=== PATIENT | female | born 1965 | race Caucasian/White ===

== ENCOUNTER 2018-02-04 22:57 | Inpatient (IN) ==
[2018-02-04] MEDS ORDERED: Haloperidol Inj 5 MG/ML Ampul IV.PUSH ONE (23:29)
[2018-02-04] MEDS ORDERED: Tobramycin 0.3% Opth Drops 5 ML Bottle EACH EYE ONE (23:29)
--- NOTE | 2018-02-05 00:06 | ED ---
HPI General Chief Complaint: Psychiatric Symptoms Stated Complaint: Psych Eval - [facility] Time Seen by Provider: 02/05/18 14:00 Source: patient and police Mode of arrival: ambulatory Limitations: altered mental status History of Present Illness HPI Narrative: 53-year-old white female presents emergency department under March act by PD. Patient's roommates called police reporting that the patient has been off her medicines for the last couple of weeks. She was banging on the windows, banging on the mohan. They were concerned regarding the patient's well-being. She was erratic and psychotic. The patient here is psychotic. She is talking about [place] in [place]. She is not making any sense. Unable to obtain a history from the patient. Reviewed the patient's past medical history reveals: Past medical history: Bipolar disorder, cervical dysplasia Surgical history: Tummy tuck, breast augmentation Related Data Home Medications Medication Instructions Recorded Confirmed Unable to Obtain Home Meds 02/05/18 02/05/18 Allergies Allergy/AdvReac Type Severity Reaction Status Date / Time iodine Allergy Severe Swelling Verified 02/05/18 03:30 potassium iodide Allergy Severe Swelling Verified 02/05/18 03:30 povidone-iodine Allergy Severe Swelling Verified 02/05/18 03:30 prednisone Allergy Severe Nausea/Vomi Verified 02/05/18 03:30 ting sodium iodide Allergy Severe Swelling Verified 02/05/18 03:30 sodium iodide Allergy Severe Swelling Verified 02/05/18 03:30 Review of Systems ROS Unobtainable ROS Unobtainable: unobtainable due to mental status PMFSH Social History Social History Substance History: No History of Abuse Second Hand Smoke Exposure: Yes Smoking Status: Heavy tobacco smoker Tobacco Type: Cigarettes How Often Do You Have a Drink Containing Alcohol: 2 to 3 times a week Recent Travel in [place] within the Last 8 Weeks: No Recent Out of Country Travel within the Last 8 Weeks: No Exam Narrative Exam Narrative: GENERAL: Well-nourished, well-developed patient. Patient is somewhat agitated. Unwilling to answer questions. SKIN: Warm and dry. HEAD: Normocephalic and atraumatic. EYES: No scleral icterus. No injection or drainage in the right eye. Patient's left eye is injected. She has a large amount of mucoid drainage. She has permanent eyeliner on. ENT: No nasal drainage noted. Mucous membranes very dry and her lips are cracked. Airway patent. NECK: Supple, trachea midline. Moves head freely without obvious discomfort. CARDIOVASCULAR: Regular tachycardic rate and rhythm without murmurs, gallops, or rubs. RESPIRATORY: Breath sounds equal bilaterally. No accessory muscle use. GASTROINTESTINAL: Abdomen soft, non-tender, nondistended. EXTREMITIES: No cyanosis or edema. BACK: Nontender without obvious deformity. No CVA tenderness. NEURO: Patient is alert and oriented. no sensorimotor deficits. Nonfocal. Normal speech. PSYCH: Patient is acutely psychotic and rambling. She talks about [place] and [place]. Course Initial Documented Vital Signs Temperature 98.5 F 02/04/18 23:15 Pulse Rate 96 H 02/04/18 23:15 Respiratory Rate 12 02/04/18 23:15 Blood Pressure 138/66 02/04/18 23:15 Pulse Oximetry 95 02/04/18 23:15 Last Documented Vital Signs Temperature 97.7 F 02/07/18 05:39 Pulse Rate 71 02/07/18 05:39 Respiratory Rate 17 02/07/18 05:39 Blood Pressure 117/70 02/07/18 05:39 Pulse Oximetry 97 02/07/18 05:39 Medical Decision Making MDM Narrative Medical decision making narrative: IV access is obtained. Routine laboratory tests sent for medical clearance. Patient will be given 2 L of normal saline IV , Haldol 2 mg IV, Ativan 1 mg IV. Patient's left eye will be cleansed by the nursing staff. Tobramycin ophthalmic ointment will be instilled. Medical Screen Exam Complete: Yes Emergency Medical Condition: Yes Differential Diagnosis Differential Diagnosis: MDM: High Differential diagnoses: Schizophrenia, schizoaffective disorder, bipolar, anxiety, depression, adjustment reaction, mood disorder NOS, ODD, depressive disorder NOS, dementia, dementia with agitation, psychosis NOS, substance induced mood disorder, infection,electrolyte abnormality, malingering. Mental health screening discussed with the patient. Psychiatric screen ordered. Lab Data Result diagrams: 02/04/18 00:20 02/04/18 00:20 Lab Results 02/04/18 02/04/18 02/05/18 Range/Units 00:20 00:20 03:43 WBC 9.5 (4.0-11.0) th/mm3 RBC 4.32 (4.00-5.30) mil/mm3 Hgb 12.7 (11.6-15.3) gm/dL Hct 36.1 (35.0-46.0) % MCV 83.7 (80.0-100.0) fL MCH 29.3 (27.0-34.0) pg MCHC 35.0 (32.0-36.0) % RDW 13.1 (11.6-17.2) % Plt Count 236 (150-450) th/mm3 MPV 9.4 (7.0-11.0) fL Neut % (Auto) 71.3 H (16.0-70.0) % Lymph % (Auto) 21.2 (9.0-44.0) % [place] % (Auto) 6.4 (0.0-8.0) % Eos % (Auto) 0.4 (0.0-4.0) % Baso % (Auto) 0.7 (0.0-2.0) % Neut # (Auto) 6.8 (1.8-7.7) th/mm3 Lymph # (Auto) 2.0 (1.0-4.8) th/mm3 [place] # (Auto) 0.6 (0.0-0.9) th/mm3 Eos # (Auto) 0.0 (0.0-0.4) th/mm3 Baso # (Auto) 0.1 (0.0-0.2) th/mm3 WBC Differential . Differential Comment Auto diff final Sodium 149 H (136-145) meq/L Potassium 3.6 (3.5-5.1) meq/L Chloride 114 H (98-107) meq/L Carbon Dioxide 26.2 (21.0-32.0) meq/L Anion Gap 9 (5-15) meq/L BUN 15 (7-18) mg/dL Creatinine 0.78 (0.50-1.00) mg/dL Estimated GFR 77 L (>89) mL/min Random Glucose 107 H (74-106) mg/dL Calcium 8.9 (8.5-10.1) mg/dL Magnesium 2.0 (1.5-2.5) mg/dL Total Bilirubin 0.5 (0.2-1.0) mg/dL AST 17 (15-37) U/L ALT 17 (10-53) U/L Alkaline Phosphatase 56 (45-117) U/L Total Protein 7.0 (6.4-8.2) g/dL Albumin 3.9 (3.4-5.0) g/dL TSH 0.592 (0.358-3.740) uIU/mL Urine Color (Yellw/Straw) Urine Clarity (Clear) Urine pH (5.0-8.5) Ur Specific [place] (1.002-1.035) Urine Protein (Neg-Trace) mg/dL Urine Glucose (UA) (Negative) mg/dL Urine Ketones (Negative) mg/dL Urine Occult Blood (Negative) Urine Nitrate (Negative) Urine Bilirubin (Negative) Urine Urobilinogen (Less than 2) mg/dL Ur Leukocyte Esterase (Negative) Urine RBC (0-3) /hpf Urine WBC (0-5) /hpf Ur Squamous Epith Cells (0-5) /hpf Calcium Oxalate Crystal (None) /hpf Urine Bacteria (None) /hpf Urine Mucus (Occasional) /lpf Micro UA Comment Ur Microscopic Review Urine Culture Comments Urine Opiates Screen Neg (Neg) Ur Barbiturates Screen Neg (Neg) Ur Amphetamines Screen Neg (Neg) U Benzodiazepines Scrn Neg (Neg) Urine Cocaine Screen Neg (Neg) U Cannabinoids Screen Pos H (Neg) Serum Alcohol Less than 3 (0-5) mg/dL 02/05/18 Range/Units 03:43 WBC (4.0-11.0) th/mm3 RBC (4.00-5.30) mil/mm3 Hgb (11.6-15.3) gm/dL Hct (35.0-46.0) % MCV (80.0-100.0) fL MCH (27.0-34.0) pg MCHC (32.0-36.0) % RDW (11.6-17.2) % Plt Count (150-450) th/mm3 MPV (7.0-11.0) fL Neut % (Auto) (16.0-70.0) % Lymph % (Auto) (9.0-44.0) % [place] % (Auto) (0.0-8.0) % Eos % (Auto) (0.0-4.0) % Baso % (Auto) (0.0-2.0) % Neut # (Auto) (1.8-7.7) th/mm3 Lymph # (Auto) (1.0-4.8) th/mm3 [place] # (Auto) (0.0-0.9) th/mm3 Eos # (Auto) (0.0-0.4) th/mm3 Baso # (Auto) (0.0-0.2) th/mm3 WBC Differential Differential Comment Sodium (136-145) meq/L Potassium (3.5-5.1) meq/L Chloride (98-107) meq/L Carbon Dioxide (21.0-32.0) meq/L Anion Gap (5-15) meq/L BUN (7-18) mg/dL Creatinine (0.50-1.00) mg/dL Estimated GFR (>89) mL/min Random Glucose (74-106) mg/dL Calcium (8.5-10.1) mg/dL Magnesium (1.5-2.5) mg/dL Total Bilirubin (0.2-1.0) mg/dL AST (15-37) U/L ALT (10-53) U/L Alkaline Phosphatase (45-117) U/L Total Protein (6.4-8.2) g/dL Albumin (3.4-5.0) g/dL TSH (0.358-3.740) uIU/mL Urine Color [place] (Yellw/Straw) Urine Clarity Clear (Clear) Urine pH 5.0 (5.0-8.5) Ur Specific [place] 1.029 (1.002-1.035) Urine Protein 100 H (Neg-Trace) mg/dL Urine Glucose (UA) Negative (Negative) mg/dL Urine Ketones 80 or greater H (Negative) mg/dL Urine Occult Blood Negative (Negative) Urine Nitrate Negative (Negative) Urine Bilirubin Negative (Negative) Urine Urobilinogen 2.0 H (Less than 2) mg/dL Ur Leukocyte Esterase Trace H (Negative) Urine RBC 1 (0-3) /hpf Urine WBC 5 (0-5) /hpf Ur Squamous Epith Cells 1 (0-5) /hpf Calcium Oxalate Crystal Rare H (None) /hpf Urine Bacteria Rare H (None) /hpf Urine Mucus Few H (Occasional) /lpf Micro UA Comment Culture not ind Ur Microscopic Review Not Reportable Urine Culture Comments Culture not ind Urine Opiates Screen (Neg) Ur Barbiturates Screen (Neg) Ur Amphetamines Screen (Neg) U Benzodiazepines Scrn (Neg) Urine Cocaine Screen (Neg) U Cannabinoids Screen (Neg) Serum Alcohol (0-5) mg/dL Discharge Plan Discharge Disposition Patient Disposition: 01 Discharge Home Discharge Condition Condition: Stable Physicians Team ED Provider: Glenna Cerda ED Midlevel Provider: Mike Brown Primary Care Provider: UNKNOWN, Attending Provider: August Lim Other Providers: Blanco Perez ED Status: Left Department Discharge Information Discharge Date/Time: 02/05/18 16:16
[2018-02-05] MEDS: Sod Chloride 0.9% Inj 1,000 ML IV.SIG SCH ×2 (00:09→00:22)
[2018-02-05 01:06] LABS: Alanine Aminotransferase 17 U/L (10-53); Albumin 3.9 g/dL (3.4-5.0); Anion Gap 9 meq/L (5-15); Aspartate Aminotransferase 17 U/L (15-37); Blood Urea Nitrogen 15 mg/dL (7-18); Calcium 8.9 mg/dL (8.5-10.1); Carbon Dioxide 26.2 meq/L (21.0-32.0); Chloride 114 meq/L (98-107); Glomerular Filtration Rate 77 mL/min (>89); Glucose,Random 107 mg/dL (74-106); Potassium 3.6 meq/L (3.5-5.1); Sodium 149 meq/L (136-145)
[2018-02-05 01:08] LABS: Baso # (Auto) 0.1 th/mm3 (0.0-0.2); Baso % (Auto) 0.7 % (0.0-2.0); Eos % (Auto) 0.4 % (0.0-4.0); Hematocrit 36.1 % (35.0-46.0); Hemoglobin 12.7 gm/dL (11.6-15.3); Lymph % (Auto) 21.2 % (9.0-44.0); Mean Corpuscular Hemoglobin 29.3 pg (27.0-34.0); Mean Corpuscular Volume 83.7 fL (80.0-100.0); Mean Platelet Volume 9.4 fL (7.0-11.0); Mono # (Auto) 0.6 th/mm3 (0.0-0.9); Mono % (Auto) 6.4 % (0.0-8.0); Neut # (Auto) 6.8 th/mm3 (1.8-7.7); Neut % (Auto) 71.3 % (16.0-70.0); Platelet Count 236 th/mm3 (150-450); Red Blood Count 4.32 mil/mm3 (4.00-5.30); Red Cell Distribution Width 13.1 % (11.6-17.2); White Blood Count 9.5 th/mm3 (4.0-11.0)
[2018-02-05 01:17] LABS: Alkaline Phosphatase 56 U/L (45-117); Thyroid Stimulating Hormone 0.592 uIU/mL (0.358-3.740)
[2018-02-05 04:08] LABS: Amphetamine Screen,Urine Neg (Neg); Barbiturate Screen,Urine Neg (Neg); Cannabinoid Screen,Urine Pos (Neg); Cocaine Screen,Urine Neg (Neg); Opiate Screen,Urine Neg (Neg)
[2018-02-05 04:16] LABS: Bacteria,Urine Rare /hpf; Bilirubin,Urine Negative (Negative); Calcium Oxalate Crystals,Urine Rare /hpf; Clarity,Urine Clear (Clear); Color,Urine Amber (Yellw/Straw); Glucose,Urine (UA) Negative (Negative); Leukocyte Esterase,Urine Trace (Negative); Mucus,Urine Few /lpf (Occasional); Nitrite,Urine Negative (Negative); Specific Gravity,Urine 1.029 (1.002-1.035); Squamous Epithelial Cell,Urine 1 /hpf (0-5)
--- NOTE | 2018-02-05 14:20 | ED ---
HPI - Psych - General Source: patient, police Mode of arrival: ambulatory Limitations: other - History of Present Illness MD complaint: other Onset (ago): hour(s) Duration: constant History of same: Yes Relieving factors: none Context: not taking psychiatric medications Associated psychiatric symptoms: homicidal ideation, delusions Associated symptoms: other Treatments prior to arrival: placed on mental health hold (Unable to evaluate), chemical restraints If self harm: other (Negative) - General Chief Complaint: Psychiatric Symptoms Stated Complaint: Psych Eval - DBPD Time Seen by Provider: 02/05/18 14:00 - History of Present Illness HPI Narrative: History of Present Illness HPI Narrative: 53-year-old white female with history of schizoaffective disorder who presents to the emergency department under March act initiated by PD. Patient's roommates called police reporting that the patient has been off her medicines for the last couple of weeks, has not showered in 4 days and was smashing her hands against the mohan and windows of her room. The patient required ETO's while in the ED. She is talking about [place] and [place]. She is also talking about people performing surgery on her and trying to kill her. She becomes agitated quickly whenever staff attempt to engage her. She is quite reactive and hostile towards me with limited impulse control and poor insight. Unable to obtain a history from the patient. EMR reviewed. The patient was admitted to inpatient psychiatry unit back in 2014 under March act as well for homicidal threats against 3 unknown individuals. (Beulah Dickinson) - Related Data Home Medications Medication Instructions Recorded Confirmed Unable to Obtain Home Meds 02/05/18 02/05/18 Allergies Allergy/AdvReac Type Severity Reaction Status Date / Time iodine Allergy Severe Swelling Verified 02/05/18 03:30 potassium iodide Allergy Severe Swelling Verified 02/05/18 03:30 povidone-iodine Allergy Severe Swelling Verified 02/05/18 03:30 prednisone Allergy Severe Nausea/Vomi Verified 02/05/18 03:30 ting sodium iodide Allergy Severe Swelling Verified 02/05/18 03:30 sodium iodide Allergy Severe Swelling Verified 02/05/18 03:30 PMFSH - History History Provided By: Patient - Social History I have reviewed the patient's Social History: No - Tobacco History Second Hand Smoke Exposure: Yes Tobacco Use In Past 30 Days: Yes Smoking Status: Heavy tobacco smoker Tobacco Type: Cigarettes - Alcohol History How Often Do You Have a Drink Containing Alcohol: 2 to 3 times a week - Substance Use History Substance History: No History of Abuse - Travel History Recent Travel in the [place] Within the Last 8 Weeks: No Recent Travel Out of the Country Within the Last 8 Weeks: No - Immunization History Tetanus Immunization: <5 Years Psychiatric History - Psychiatric History Psychiatric Treatment History: History of Psychiatric Treatment History of Inpatient Treatment: Yes - Psychiatric History 1 previous admission to our inpatient psychiatric unit in 2014 (Beulah Dickinson) - Family Psychiatric History Unable to (Beulah Dickinson) Physical Exam - General Limitations: altered mental status Mental Status Examination Consciousness: Alert Orientation: Person Motor Activity: Normal gait Speech: Other (Loud) Language: Adequate Fund of Knowledge: Adequate Attention and Concentration: Inadequate Memory: Unremarkable Mood: Angry (Not formally tested), Other (Easily agitated and threatening) Affect: Irritable Thought Process & Associations: Disorganized Thought Content: Delusional Hallucination Type: None Delusion Type: Paranoid, Other Suicidal Ideation: No Suicidal Plan: No Suicidal Intention: No Homicidal Ideation: No Homicidal Plan: No Homicidal Intention: No Insight: Poor Judgment: Poor Initial Documented Vital Signs Temperature 98.5 F 02/04/18 23:15 Pulse Rate 96 H 02/04/18 23:15 Respiratory Rate 12 02/04/18 23:15 Blood Pressure 138/66 02/04/18 23:15 Pulse Oximetry 95 02/04/18 23:15 Last Documented Vital Signs Temperature 98.5 F 02/04/18 23:15 Pulse Rate 79 02/05/18 12:59 Respiratory Rate 18 02/05/18 12:59 Blood Pressure 118/60 02/05/18 12:59 Pulse Oximetry 100 02/05/18 12:59 MDM - Psych - Diagnosis (1) Schizoaffective disorder Status: Acute - Lab Data Result diagrams: 02/04/18 00:20 02/04/18 00:20 - [facility] Narrative Medical decision making narrative: The time of this evaluation the patient meets criteria to remain under the March act. She presents as quite psychotic easily agitated and threatening. She believes that people are trying to harm her and perform surgery on her. Patient will be admitted to inpatient psychiatric unit for safety stabilization and to restart her medications. (Beulah Dickinson) - Lab Data Lab Results 02/04/18 02/04/18 02/05/18 Range/Units 00:20 00:20 03:43 WBC 9.5 (4.0-11.0) th/mm3 RBC 4.32 (4.00-5.30) mil/mm3 Hgb 12.7 (11.6-15.3) gm/dL Hct 36.1 (35.0-46.0) % MCV 83.7 (80.0-100.0) fL MCH 29.3 (27.0-34.0) pg MCHC 35.0 (32.0-36.0) % RDW 13.1 (11.6-17.2) % Plt Count 236 (150-450) th/mm3 MPV 9.4 (7.0-11.0) fL Neut % (Auto) 71.3 H (16.0-70.0) % Lymph % (Auto) 21.2 (9.0-44.0) % [place] % (Auto) 6.4 (0.0-8.0) % Eos % (Auto) 0.4 (0.0-4.0) % Baso % (Auto) 0.7 (0.0-2.0) % Neut # (Auto) 6.8 (1.8-7.7) th/mm3 Lymph # (Auto) 2.0 (1.0-4.8) th/mm3 [place] # (Auto) 0.6 (0.0-0.9) th/mm3 Eos # (Auto) 0.0 (0.0-0.4) th/mm3 Baso # (Auto) 0.1 (0.0-0.2) th/mm3 WBC Differential . Differential Comment Auto diff final Sodium 149 H (136-145) meq/L Potassium 3.6 (3.5-5.1) meq/L Chloride 114 H (98-107) meq/L Carbon Dioxide 26.2 (21.0-32.0) meq/L Anion Gap 9 (5-15) meq/L BUN 15 (7-18) mg/dL Creatinine 0.78 (0.50-1.00) mg/dL Estimated GFR 77 L (>89) mL/min Random Glucose 107 H (74-106) mg/dL Calcium 8.9 (8.5-10.1) mg/dL Magnesium 2.0 (1.5-2.5) mg/dL Total Bilirubin 0.5 (0.2-1.0) mg/dL AST 17 (15-37) U/L ALT 17 (10-53) U/L Alkaline Phosphatase 56 (45-117) U/L Total Protein 7.0 (6.4-8.2) g/dL Albumin 3.9 (3.4-5.0) g/dL TSH 0.592 (0.358-3.740) uIU/mL Urine Color (Yellw/Straw) Urine Clarity (Clear) Urine pH (5.0-8.5) Ur Specific [place] (1.002-1.035) Urine Protein (Neg-Trace) mg/dL Urine Glucose (UA) (Negative) mg/dL Urine Ketones (Negative) mg/dL Urine Occult Blood (Negative) Urine Nitrate (Negative) Urine Bilirubin (Negative) Urine Urobilinogen (Less than 2) mg/dL Ur Leukocyte Esterase (Negative) Urine RBC (0-3) /hpf Urine WBC (0-5) /hpf Ur Squamous Epith Cells (0-5) /hpf Calcium Oxalate Crystal (None) /hpf Urine Bacteria (None) /hpf Urine Mucus (Occasional) /lpf Micro UA Comment Ur Microscopic Review Urine Culture Comments Urine Opiates Screen Neg (Neg) Ur Barbiturates Screen Neg (Neg) Ur Amphetamines Screen Neg (Neg) U Benzodiazepines Scrn Neg (Neg) Urine Cocaine Screen Neg (Neg) U Cannabinoids Screen Pos H (Neg) Serum Alcohol Less than 3 (0-5) mg/dL 02/05/18 Range/Units 03:43 WBC (4.0-11.0) th/mm3 RBC (4.00-5.30) mil/mm3 Hgb (11.6-15.3) gm/dL Hct (35.0-46.0) % MCV (80.0-100.0) fL MCH (27.0-34.0) pg MCHC (32.0-36.0) % RDW (11.6-17.2) % Plt Count (150-450) th/mm3 MPV (7.0-11.0) fL Neut % (Auto) (16.0-70.0) % Lymph % (Auto) (9.0-44.0) % [place] % (Auto) (0.0-8.0) % Eos % (Auto) (0.0-4.0) % Baso % (Auto) (0.0-2.0) % Neut # (Auto) (1.8-7.7) th/mm3 Lymph # (Auto) (1.0-4.8) th/mm3 [place] # (Auto) (0.0-0.9) th/mm3 Eos # (Auto) (0.0-0.4) th/mm3 Baso # (Auto) (0.0-0.2) th/mm3 WBC Differential Differential Comment Sodium (136-145) meq/L Potassium (3.5-5.1) meq/L Chloride (98-107) meq/L Carbon Dioxide (21.0-32.0) meq/L Anion Gap (5-15) meq/L BUN (7-18) mg/dL Creatinine (0.50-1.00) mg/dL Estimated GFR (>89) mL/min Random Glucose (74-106) mg/dL Calcium (8.5-10.1) mg/dL Magnesium (1.5-2.5) mg/dL Total Bilirubin (0.2-1.0) mg/dL AST (15-37) U/L ALT (10-53) U/L Alkaline Phosphatase (45-117) U/L Total Protein (6.4-8.2) g/dL Albumin (3.4-5.0) g/dL TSH (0.358-3.740) uIU/mL Urine Color [place] (Yellw/Straw) Urine Clarity Clear (Clear) Urine pH 5.0 (5.0-8.5) Ur Specific [place] 1.029 (1.002-1.035) Urine Protein 100 H (Neg-Trace) mg/dL Urine Glucose (UA) Negative (Negative) mg/dL Urine Ketones 80 or greater H (Negative) mg/dL Urine Occult Blood Negative (Negative) Urine Nitrate Negative (Negative) Urine Bilirubin Negative (Negative) Urine Urobilinogen 2.0 H (Less than 2) mg/dL Ur Leukocyte Esterase Trace H (Negative) Urine RBC 1 (0-3) /hpf Urine WBC 5 (0-5) /hpf Ur Squamous Epith Cells 1 (0-5) /hpf Calcium Oxalate Crystal Rare H (None) /hpf Urine Bacteria Rare H (None) /hpf Urine Mucus Few H (Occasional) /lpf Micro UA Comment Culture not ind Ur Microscopic Review Not Reportable Urine Culture Comments Culture not ind Urine Opiates Screen (Neg) Ur Barbiturates Screen (Neg) Ur Amphetamines Screen (Neg) U Benzodiazepines Scrn (Neg) Urine Cocaine Screen (Neg) U Cannabinoids Screen (Neg) Serum Alcohol (0-5) mg/dL
[2018-02-05] MEDS ORDERED: Aluminum/Magnesium/Simethacone Susp 30 ML UDC PO PRN (15:34)
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
[2018-02-06] MEDS ORDERED: Benztropine Inj 2 MG/2 ML Ampul IM PRN (12:50)
[2018-02-06] MEDS ORDERED: Acetaminophen 325 MG Tablet PO PRN (12:50)
[2018-02-06] MEDS ORDERED: fluPHENAZine Inj 25 MG/10 ML Vial IM PRN ×2 (14:00)
--- NOTE | 2018-02-07 09:54 | P.CONPSY ---
Provisional Diagnosis Admission Date: February 05, 2018 15:36 [employer] [place].: 1. Schizoaffective disorder, bipolar type, acute exacerbation 2. Cannabis use, rule out use disorder [employer] II.: Deferred History of Present Illness Service: Psychiatry Consult date: 02/07/18 Requesting Physician: August Lim Reason for Consult: Second opinion petition supporting [employer] Primary Care Provider: UNKNOWN History of Present Illness: Patient is a 53-year-old white female admitted to Dr. August Lim service under the March act's H&P reviewed and agreed with. Dr. Lim assigned first opinion petition supporting March act. Patient seen by me in day room with nurse Shanita. Patient with rapid pressured speech quite paranoid delusional showing no insight somewhat threatening also with her behaviors. At this time I feel patient does not meet March criteria thus I will cosign second opinion petition supporting [employer] act Review of Systems All other systems reviewed negative except as stated in HPI PMFSH - History History Provided By: Patient - Medical / Surgical Hx Neg / Unobtainable Medical Problems Denied: Unable to Obtain (Due to patient's psychosis) Surgical History: Unable to Obtain (Due to patient's psychosis) - Tobacco History Second Hand Smoke Exposure: Yes Tobacco Use In Past 30 Days: Yes Smoking Status: Heavy tobacco smoker Tobacco Type: Cigarettes - Alcohol History How Often Do You Have a Drink Containing Alcohol: 2 to 3 times a week - Substance Use History Substance History: No History of Abuse - Travel History Recent Travel in the [place] Within the Last 8 Weeks: No Recent Travel Out of the Country Within the Last 8 Weeks: No - Immunization History Tetanus Immunization: <5 Years Medications and Allergies Active Medications: Active Medications Acetaminophen (Tylenol) 650 mg PO Q4H PRN PRN Reason: Pain 1-5 or Temp >101F Al Hydrox/Mg Hydrox/Simethicone (Mag-Al Plus Susp Liq) 30 ml PO Q6H PRN PRN Reason: DYSPEPSIA Al Hydroxide/Mg Hydroxide (Milk Of Magnesia Liq) 30 ml PO Q12H PRN PRN Reason: Mild Constipation Benztropine Mesylate (Cogentin) 1 mg PO Q12H PRN PRN Reason: EXTRA PYRAMIDAL SYMPTOMS Benztropine Mesylate (Cogentin Inj) 1 mg IM Q12H PRN PRN Reason: EXTRA PYRAMIDAL SYMPTOMS Diphenhydramine HCl (Benadryl) 50 mg PO HS PRN PRN Reason: INSOMNIA Fluphenazine HCl (Prolixin) 5 mg PO BID [facility] Last Admin: 02/07/18 08:19 Dose: 5 mg Fluphenazine HCl (Prolixin Inj) 5 mg IM BID PRN PRN Reason: REFUSES PO PROLIXIN Fluphenazine HCl (Prolixin Inj) 5 mg IM Q8H PRN PRN Reason: SEVERE AGITATION Lorazepam (Ativan Inj) 1 mg IM Q6H PRN PRN Reason: MODERATE TO SEVERE ANXIETY Lorazepam (Ativan) 1 mg PO Q6H PRN PRN Reason: MODERATE TO SEVERE ANXIETY Nicotine (Habitrol 21 Mg Patch.24 Hr) 1 patch T-DERMAL DAILY [facility] Last Admin: 02/07/18 08:18 Dose: 1 patch Valproate Sodium (Depakene Liq) 500 mg PO BID [facility] Last Admin: 02/07/18 08:18 Dose: Not Given Allergies Allergy/AdvReac Type Severity Reaction Status Date / Time iodine Allergy Severe Swelling Verified 02/05/18 03:30 potassium iodide Allergy Severe Swelling Verified 02/05/18 03:30 povidone-iodine Allergy Severe Swelling Verified 02/05/18 03:30 prednisone Allergy Severe Nausea/Vomi Verified 02/05/18 03:30 ting sodium iodide Allergy Severe Swelling Verified 02/05/18 03:30 sodium iodide Allergy Severe Swelling Verified 02/05/18 03:30 Home Medications Medication Instructions Recorded Confirmed Type Unable to Obtain Home Meds 02/05/18 02/05/18 History Exam Vital signs: Vital Signs 02/07/18 05:39 Temperature 97.7 F Pulse Rate 71 Respiratory Rate 17 Blood Pressure 117/70 Pulse Oximetry 97 Narrative: Patient pacing in the dayroom she is in no acute distress she is in no respiratory distress patient patient moving all 4 extremities without difficulty she is not complaining of any chest pain or abdominal pain Mental Status Examination Appearance: Disheveled Consciousness: Alert, Vigilant Orientation: Person, Place Motor Activity: Normal gait Speech: Rapid, Other (Loud, angry) Language: Adequate Fund of Knowledge: Adequate (Limited sample but seems adequate) Attention and Concentration: Inadequate Memory: Impaired (Psychosis interferes) Mood: Angry, Oppositional, Irritable Affect: Other (Increased range and intensity) Thought Process & Associations: Disorganized Thought Content: Delusional Hallucination Type: Other (Appears internally stimulated) Delusion Type: Paranoid Suicidal Ideation: No (No SI voiced but unreliable to contract for safety) Suicidal Plan: No Suicidal Intention: No Homicidal Ideation: No (No HI voiced but unreliable to contract for safety) Homicidal Plan: No Homicidal Intention: No Insight: Poor Judgment: Poor Assessment and Plan - Assessment (1) Schizoaffective disorder Code(s): F25.9 - Schizoaffective disorder, unspecified Status: Acute (2) Marijuana use Code(s): F12.90 - Cannabis use, unspecified, uncomplicated Status: Acute - Plan Plan: Patient does meet [place] act criteria I will cosign second opinion petition supporting March act Justification for Continued Inpatient Stay: At this time patient would decompensate a place to a lower level of care Discharge Planning: To be determined Request Healthcare Surrogate/Guardian Advocate?: Yes (1) Schizoaffective disorder Qualifiers: Schizoaffective disorder type: bipolar Qualified Code(s): F25.0 - Schizoaffective disorder, bipolar type
--- NOTE | 2018-02-07 10:31 | P.PNPSY ---
Subjective Chief Complaint: Psychosis Remarks: Patient seen and examined with nurse. Chart reviewed. PO intake noted to be good. Case discussed with nursing staff. Patient noted to be a little less agitated today, although she remains fairly psychotic. Nurse reports that patient refused VPA and also refused EKG and labs. Case discussed in treatment team. On my examination today, patient is stalking around the unit. Her speech remains fairly loud and angry. She remains quite paranoid and irritable. She is demanding a cigarette. She has a nicotine patch, and when I try to enagage with her to manage her nicotine craving (e.g. by adding nicotine gum), she refuses to discuss it and storms off. No evident side effects from medications. No physical complaints. Vital Signs Temp Pulse Resp BP Pulse Ox 02/07/18 05:39 97.7 F 71 17 117/70 97 Patient is refusing labs and EKG. Review of Systems unobtainable due to mental condition Mental Status Examination Appearance: Disheveled Consciousness: Alert, Vigilant Orientation: Person (at least) Motor Activity: Normal gait, Other (No motor abnormalities noted) Speech: Other (Loud and angry) Language: Adequate Fund of Knowledge: Adequate (Limited sample but seems adequate) Attention and Concentration: Inadequate Memory: Impaired (Psychosis interferes) Mood: Angry, Oppositional, Irritable Affect: Other (Broadly dysphoric) Thought Process & Associations: Tangential Thought Content: Delusional Hallucination Type: Other (Remains internally preoccupied) Delusion Type: Paranoid Suicidal Ideation: No Homicidal Ideation: No Insight: Poor Judgment: Poor Assessment and Plan - Assessment (1) Schizoaffective disorder Code(s): F25.9 - Schizoaffective disorder, unspecified Status: Acute (2) Marijuana use Code(s): F12.90 - Cannabis use, unspecified, uncomplicated Status: Acute - Plan Plan: Titrate Prolixin to 5mg TID PO with IM backup to target psychosis. To consider further titration of Prolixin over weekend. Continue to offer VPA. If patient becomes calmer and more cooperative over weekend, please reorder BMP and EKG. Continue to monitor on the high acuity unit. Continue other medications and care as ordered. Justification for Continued Inpatient Stay: Medication changes. Impairment in reality construction. High risk for decompensation in less restrictive environment. Discharge Planning: Pending psychiatric stabilization. Request Healthcare Surrogate/Guardian Advocate?: Yes (1) Schizoaffective disorder Qualifiers: Schizoaffective disorder type: bipolar Qualified Code(s): F25.0 - Schizoaffective disorder, bipolar type
[2018-02-07] MEDS ORDERED: fluPHENAZine Inj 25 MG/10 ML Vial IM PRN (15:00)
--- NOTE | 2018-02-07 15:22 | P.TTN ---
- Patient Problems Problems: 1. Discharge planning 2. Medication compliance 3. Knowledge deficit 4. Lack of coping skills - Progress Toward Goals Provider Present: Dr. Jesús Lim (Dr. Lim is titrating medications Prolixin and Depakote.) Psychiatric Counselors Present: Sanket Valenzuela Jr., [facility] (Counselor attempted to call the patient's son to discuss safe discharge plan, without success, counselor left a voicemail. The patient's son is apparently coming from [place] next week to assist with discharge planning per Dr. Lim.) Group Spec/RT/OT/CORDERO Present: CONSUELO Fernandez (Patient does not attend groups at this time.) - Documentation Teaching Recipient: Patient
--- NOTE | 2018-02-08 12:49 | P.PNPSY ---
Subjective Chief Complaint: Psychosis Remarks: Patient was seen and case discussed with nursing. Patient remains angry dismissive and oppositional. She feels that she is locked up and here illegally. Poor compliance of medications. Her affect is angry but she has not had any outbursts or required any ETO's. Mental Status Examination Appearance: Disheveled Consciousness: Alert, Vigilant Orientation: Person (at least) Motor Activity: Normal gait, Other (No motor abnormalities noted) Speech: Other (Loud and angry) Language: Adequate Fund of Knowledge: Adequate (Limited sample but seems adequate) Attention and Concentration: Inadequate Memory: Impaired (Psychosis interferes) Mood: Angry, Oppositional, Irritable Affect: Other (Broadly dysphoric) Thought Process & Associations: Tangential Thought Content: Delusional Hallucination Type: Other (Remains internally preoccupied) Delusion Type: Paranoid Suicidal Ideation: No Suicidal Plan: No Suicidal Intention: No Homicidal Ideation: No Homicidal Plan: No Homicidal Intention: No Insight: Poor Judgment: Poor Assessment and Plan - Assessment (1) Schizoaffective disorder Code(s): F25.9 - Schizoaffective disorder, unspecified Status: Acute (2) Marijuana use Code(s): F12.90 - Cannabis use, unspecified, uncomplicated Status: Acute - Plan Plan: Continue current treatment plan Justification for Continued Inpatient Stay: Patient would decompensate in a less restrictive setting Request Healthcare Surrogate/Guardian Advocate?: Yes (1) Schizoaffective disorder Qualifiers: Schizoaffective disorder type: bipolar Qualified Code(s): F25.0 - Schizoaffective disorder, bipolar type
--- NOTE | 2018-02-09 10:03 | P.PNPSY ---
Subjective Chief Complaint: Psychosis Remarks: Medical record reviewed and discussed with nursing staff. Met with patient in the day room , accompanied by OTIS Diehl. Patient is oppositional and dismissive. She is angry and rambling that we are under arrest and that the federal people are coming. She is refusing her depakote and did take her Prolixin. She is pacing the hallway. No ETOs , does redirect. Review of Systems All other systems reviewed negative except as stated in HPI Mental Status Examination Appearance: Disheveled Consciousness: Alert, Vigilant Orientation: Person (at least) Motor Activity: Normal gait, Other (No motor abnormalities noted) Speech: Other (Loud and angry) Language: Adequate Fund of Knowledge: Adequate (Limited sample but seems adequate) Attention and Concentration: Inadequate Memory: Impaired (Psychosis interferes) Mood: Angry, Oppositional, Irritable Affect: Other (Broadly dysphoric) Thought Process & Associations: Tangential Thought Content: Delusional Hallucination Type: Other (Remains internally preoccupied) Delusion Type: Paranoid Suicidal Ideation: No Suicidal Plan: No Suicidal Intention: No Homicidal Ideation: No Homicidal Plan: No Homicidal Intention: No Insight: Poor Judgment: Poor Assessment and Plan - Assessment (1) Schizoaffective disorder Code(s): F25.9 - Schizoaffective disorder, unspecified Status: Acute (2) Marijuana use Code(s): F12.90 - Cannabis use, unspecified, uncomplicated Status: Acute - Plan Plan: Continue current treatment plan Justification for Continued Inpatient Stay: Moving patient to a less restrictive environment may result in her decompensation. Request Healthcare Surrogate/Guardian Advocate?: Yes (1) Schizoaffective disorder Qualifiers: Schizoaffective disorder type: bipolar Qualified Code(s): F25.0 - Schizoaffective disorder, bipolar type
[2018-02-10] MEDS: LORazepam 1 MG Tablet PO PRN ×3 (08:48→20:49)
--- NOTE | 2018-02-10 10:17 | P.PNPSY ---
Subjective Chief Complaint: Psychosis Remarks: Patient seen and examined with nurse. Chart reviewed. Case discussed with nursing staff who reports patient has been somewhat hostile and uncooperative. She has been refusing laboratories. On my examination today, the patient remains fairly irritable. She is able to tolerate the fresh air group with peers but presents as oppositional and irritable when interacting with clinicians, including this clinician. She remains fairly paranoid. She apparently has recently discovered that Ativan was made available as needed and says that she plans to use this to help manage the "pandemonium" that she is experiencing. No evident side effects from medications. No physical complaints. Vital Signs Temp Pulse Resp BP Pulse Ox 02/10/18 06:00 98 F 80 18 142/84 H 100 02/09/18 15:52 98.1 F 70 18 151/84 H 98 Intake and Output 02/09/18 02/10/18 02/10/18 22:59 06:59 14:59 Other: Weight 50 kg Labs reviewed. No new labs. Review of Systems unobtainable due to mental condition Mental Status Examination Appearance: Appropriate (Fair) Consciousness: Alert, Vigilant Orientation: Person (at least) Motor Activity: Normal gait, Other (No abnormal motor movements noted) Speech: Other (Terse, angry) Language: Adequate Fund of Knowledge: Adequate Attention and Concentration: Adequate Memory: Impaired (Psychosis interferes) Mood: Oppositional, Irritable Affect: Irritable, Other (Dysphoric, but less so than before the weekend) Thought Process & Associations: Circumstantial Thought Content: Delusional Hallucination Type: Other (Internally preoccupied) Delusion Type: Paranoid Suicidal Ideation: No Homicidal Ideation: No Insight: Poor Judgment: Poor Assessment and Plan - Assessment (1) Schizoaffective disorder Code(s): F25.9 - Schizoaffective disorder, unspecified Status: Acute (2) Marijuana use Code(s): F12.90 - Cannabis use, unspecified, uncomplicated Status: Acute - Plan Plan: Patient does seem to be improving somewhat with Prolixin in the sense that she is less irritable and her thought process is more organized. However, she remains significantly decompensated with respect to her psychotic illness, and further inpatient psychiatric stabilization is indicated. I will titrate patient's Prolixin to 5 mg 4 times daily with IM backup. Patient has been consistently refusing her Depakote, and I will discontinue this medication. Continue to monitor on the high acuity unit. Continue other medications and care as ordered. Justification for Continued Inpatient Stay: Medication changes. Impairment in reality construction. High risk for decompensation in less restrictive environment. Discharge Planning: Pending psychiatric stabilization Request Healthcare Surrogate/Guardian Advocate?: Yes (1) Schizoaffective disorder Qualifiers: Schizoaffective disorder type: bipolar Qualified Code(s): F25.0 - Schizoaffective disorder, bipolar type
[2018-02-10] MEDS: fluPHENAZine Inj 25 MG/10 ML Vial IM PRN (20:52)
[2018-02-11] MEDS: LORazepam 1 MG Tablet PO PRN ×3 (08:28→21:04)
--- NOTE | 2018-02-11 10:35 | P.PNPSY ---
Subjective Chief Complaint: Psychosis Remarks: Patient seen and examined with nurse and counselor. Chart reviewed. I note patient is charted as having received both p.o. and IM Prolixin last evening. I have clarified with RN who pulled records from [facility], and no IM Prolixin has been given. Case discussed with nursing staff who reports patient is a little less irritable. Patient is med resistant, and when nursing performs mouth checks, patient reportedly castigates them for "breaking the law." On my examination, patient seems a little improved in that she is able to tolerate interview for a few minutes at least. She remains paranoid and irritable. She rambles about "bad licensed mortician and illegal hospitals." Speech seems a little garbled today, and I was concerned about some degree of jaw dystonia. Patient refuses to allow me to examine her arm for cogwheeling but does comply with tests for hypomimia or facial/tongue/jaw dystonias, and there is no evidence of motor abnormality on this exam. Nurse posits that garbled speech may be more related to Ativan p.r.n. administered shortly prior to interview. No medication side effects otherwise. No physical complaints. Vital Signs Temp Pulse Resp BP Pulse Ox 02/11/18 06:04 98.5 F 95 H 17 125/80 97 Labs reviewed. No new labs. Review of Systems All other systems reviewed negative except as stated in HPI (Limitation: Psychosis) Mental Status Examination Appearance: Appropriate (Fair grooming) Consciousness: Alert, Vigilant Orientation: Person (at least) Motor Activity: Normal gait, Other (No hypomimia, no dystonias or dyskinesias noted. Patient does decline examination of arm for cogwheeling. She has no evident tremor.) Speech: Other (Terse, angry) Language: Adequate Fund of Knowledge: Adequate Attention and Concentration: Adequate Memory: Impaired (Psychosis interferes) Mood: Oppositional, Irritable Affect: Irritable (Perhaps a little less so today), Other (Dysphoric, decreasing) Thought Process & Associations: Circumstantial Thought Content: Delusional Hallucination Type: None Delusion Type: Paranoid Suicidal Ideation: No Homicidal Ideation: No Insight: Poor Judgment: Poor Assessment and Plan - Assessment (1) Schizoaffective disorder Code(s): F25.9 - Schizoaffective disorder, unspecified Status: Acute (2) Marijuana use Code(s): F12.90 - Cannabis use, unspecified, uncomplicated Status: Acute - Plan Plan: Continue Prolixin 5 mg 4 times daily with IM backup. To consider further titration of this agent as we do appear to be seeing partial response. Replace Cogentin p.r.n. with Artane p.r.n. as patient believes that she was previously tapered off of Cogentin and has conceived of the belief that she therefore should not be taking this medication. No suggestion of allergy or intolerance to Cogentin, but I fear that her reluctance to take this medication would pose difficulty in the event that she did develop clinically significant EPS, and so I think it is prudent to make an alternative agent available. Request occupational therapy evaluation. Continue to monitor on high acuity unit. Continue other medications and care as ordered. Justification for Continued Inpatient Stay: Impairment in reality construction. High risk for decompensation in less restrictive environment. Discharge Planning: Pending psychiatric stabilization. Request Healthcare Surrogate/Guardian Advocate?: Yes (1) Schizoaffective disorder Qualifiers: Schizoaffective disorder type: bipolar Qualified Code(s): F25.0 - Schizoaffective disorder, bipolar type
[2018-02-11] MEDS: fluPHENAZine Inj 25 MG/10 ML Vial IM PRN (21:04)
[2018-02-12] MEDS: LORazepam 1 MG Tablet PO PRN ×3 (08:15→21:05)
--- NOTE | 2018-02-12 09:27 | P.PNPSY ---
Subjective Chief Complaint: Psychosis Remarks: Patient seen and examined with nurse. Chart reviewed. Case discussed with nursing staff. Patient remains fairly paranoid, irritable and angry per nursing. Case discussed with counselor who reports he has daily been trying to reach patient's son/HCS without success; he will try again today. On my exam, patient remains paranoid and irritable. I do see incremental improvement in these symptoms with the Prolixin, though. She denies AVH. Her insight into mental illness and need for treatment is poor. She tells this provider, "I'm not crazy, you are!" No side effects from medications. No physical complaints. Vital Signs Temp Pulse Resp BP Pulse Ox 02/12/18 05:54 97.7 F 96 H 17 113/75 98 02/11/18 16:35 97.7 F 102 H 18 114/66 98 Labs reviewed. No new labs. Review of Systems All other systems reviewed negative except as stated in HPI (Limitation: psychosis.) Mental Status Examination Appearance: Appropriate Consciousness: Alert, Vigilant Orientation: Person (at least) Motor Activity: Normal gait, Other (No tremor, no dystonia, no dyskinesia noted. No other motor abnormalities noted.) Speech: Unremarkable Language: Adequate Fund of Knowledge: Adequate Attention and Concentration: Adequate Memory: Impaired (Psychosis interferes) Mood: Irritable Affect: Irritable Thought Process & Associations: Circumstantial Thought Content: Delusional Hallucination Type: None Delusion Type: Paranoid Suicidal Ideation: No Suicidal Plan: No Suicidal Intention: No Homicidal Ideation: No Homicidal Plan: No Homicidal Intention: No Insight: Poor Judgment: Poor Assessment and Plan - Assessment (1) Schizoaffective disorder Code(s): F25.9 - Schizoaffective disorder, unspecified Status: Acute (2) Marijuana use Code(s): F12.90 - Cannabis use, unspecified, uncomplicated Status: Acute - Plan Plan: Titrate Prolixin to 10mg TID with IM backup. I will re-order EKG for QTc in hopes that patient will comply with this assessment now that she is a little calmer. Continue to monitor on high acuity unit. Continue other meds and care as ordered. Justification for Continued Inpatient Stay: Med changes. Impairment in reality construction. High risk for decompensation in less restrictive setting. Discharge Planning: Pending psychiatric stabilization. [address] tomorrow. Request Healthcare Surrogate/Guardian Advocate?: Yes (1) Schizoaffective disorder Qualifiers: Schizoaffective disorder type: bipolar Qualified Code(s): F25.0 - Schizoaffective disorder, bipolar type
[2018-02-12] MEDS ORDERED: fluPHENAZine Inj 25 MG/10 ML Vial IM PRN (15:00)
[2018-02-13] MEDS: LORazepam 1 MG Tablet PO PRN ×2 (08:40→16:24)
--- NOTE | 2018-02-13 12:51 | P.PNPSY ---
Subjective Chief Complaint: Psychosis Remarks: Patient seen and case discussed with nursing staff. Chart reviewed. Per nursing, patient remains angry and rambles about the sex trade. For me today, patient remains fairly irritable and paranoid. Thought process remains circumstantial. No evident side effects from medications. No physical complaints. Vital Signs Temp Pulse Resp BP Pulse Ox 02/13/18 05:49 98 F 74 16 95/64 L 97 02/12/18 23:48 6 L 02/12/18 16:56 98.3 F 106 H 17 108/66 99 Labs reviewed. No new labs. Patient did comply with EKG which was read as sinus rhythm with short GA interval. QTc 390 ms, not prolonged. Review of Systems other (Limited ROS today) Mental Status Examination Appearance: Appropriate Consciousness: Alert, Vigilant Orientation: Person (at least) Motor Activity: Normal gait, Other (No motoric abnormalities noted.) Speech: Unremarkable Language: Adequate Fund of Knowledge: Adequate Attention and Concentration: Adequate Memory: Impaired (Psychosis interferes) Mood: Irritable Affect: Irritable Thought Process & Associations: Circumstantial Thought Content: Delusional Hallucination Type: None Delusion Type: Paranoid Suicidal Ideation: No (No SI voiced) Homicidal Ideation: No (No HI voiced) Insight: Poor Judgment: Poor Assessment and Plan - Assessment (1) Schizoaffective disorder Code(s): F25.9 - Schizoaffective disorder, unspecified Status: Acute (2) Marijuana use Code(s): F12.90 - Cannabis use, unspecified, uncomplicated Status: Acute - Plan Plan: Continue Prolixin 10mg TID, the dose having just been titrated yesterday. To consider transitioning patient to a different antipsychotic due to lack of adequate therapeutic response, but I would like to give current dose of Prolixin more of a chance to work. Patient's irritability might benefit from introduction of a mood stabilizer, but patient has been resistant to taking such an agent this admission. Continue to monitor on the inpatient unit. Continue other medications and care as ordered. Patient's case was [place], and the patient was retained on the unit by the emergency response technician with a [facility] [place]. Justification for Continued Inpatient Stay: Impairment in reality construction. High risk for decompensation in less restrictive environment. Discharge Planning: Pending psychiatric stabilization. Request Healthcare Surrogate/Guardian Advocate?: Yes (1) Schizoaffective disorder Qualifiers: Schizoaffective disorder type: bipolar Qualified Code(s): F25.0 - Schizoaffective disorder, bipolar type
[2018-02-13 15:35] LABS: Hemoglobin A1c 5.5 % (4.3-6.0)
--- NOTE | 2018-02-13 17:44 | ECG ---
Date Performed: 02/12/2018 Time Performed: 14:10:44 PTAGE: 53 years EKG: Sinus rhythm WITH SHORT RI INTERVAL BORDERLINE ECG NO PREVIOUS TRACING DOCTOR: Al Garcia Interpretating Date/Time 02/13/2018 17:42:41
[2018-02-14] MEDS: LORazepam 1 MG Tablet PO PRN ×3 (08:28→20:50)
--- NOTE | 2018-02-14 10:42 | P.PNPSY ---
Subjective Chief Complaint: Psychosis Remarks: Patient seen and examined with counselor and nurse. Chart reviewed. Case discussed with nursing staff who reports that the patient remains somewhat needy but is more redirectable. Case discussed in treatment team. On my examination today, the patient is considerably calmer and more reasonable in conversation. She is somewhat perseverative on being prescribed Klonopin and notes that she was given this medication in the past for a diagnosis of "ADHD with severe hyperactivity." No paranoia. No hallucinations. No side effects from medications. No physical complaints. I spoke with patient's guardian advocate through [facility] today and obtained consent for Prolixin Decanoate given positive response to Prolixin p.o.. Vital Signs Temp Pulse Resp BP Pulse Ox 02/14/18 06:00 97.8 F 83 16 106/74 99 02/13/18 17:35 98.1 F 78 17 104/65 100 Laboratory Results - last 24 hr 02/13/18 07:23 Hemoglobin A1c 5.5 Labs reviewed. Review of Systems All other systems reviewed negative except as stated in HPI Mental Status Examination Appearance: Appropriate Consciousness: Alert Orientation: Person, Place (At least) Motor Activity: Normal gait, Other (No abnormal motor movements noted) Speech: Unremarkable Language: Adequate Fund of Knowledge: Adequate Attention and Concentration: Adequate Memory: Unremarkable (Fair) Mood: Appropriate Affect: Blunt Thought Process & Associations: Circumstantial (More focused today) Thought Content: Preoccupations Hallucination Type: None Delusion Type: None Suicidal Ideation: No Homicidal Ideation: No Insight: Poor Judgment: Poor Assessment and Plan - Assessment (1) Schizoaffective disorder Code(s): F25.9 - Schizoaffective disorder, unspecified Status: Acute (2) Marijuana use Code(s): F12.90 - Cannabis use, unspecified, uncomplicated Status: Acute - Plan Plan: Administer Prolixin decanoate 25mg IM today and continue oral Prolixin supplementation for now. Could consider backing off on oral dose somewhat ( e.g. to 7.5mg TID) as plasma levels from Decanoate rise, but in light of severity of symptoms at presentation I think it is prudent to continue with full dose of oral Prolixin for now, lest patient decompensate on lower dose of oral Prolixin. Continue to monitor on the high acuity unit. Counselor to endeavor to obtain collateral information. Continue other medications and care as ordered. Justification for Continued Inpatient Stay: Medication changes. High risk for decompensation in less restrictive environment. Discharge Planning: Pending psychiatric stabilization. Request Healthcare Surrogate/Guardian Advocate?: Yes (1) Schizoaffective disorder Qualifiers: Schizoaffective disorder type: bipolar Qualified Code(s): F25.0 - Schizoaffective disorder, bipolar type
--- NOTE | 2018-02-14 14:42 | P.TTN ---
- Patient Problems Problems: 1. Discharge planning 2. Medication compliance 3. Knowledge deficit 4. Lack of coping skills - Progress Toward Goals Provider Present: Dr. Jesús Lim (Dr. Lim is titrating medications Prolixin and Depakote.) Provider Input: Start Prolixin. Possible discharge after weekend. Psychiatric Counselors Present: Sanket Valenzuela Jr., [facility] (Counselor attempted to call the patient's son to discuss safe discharge plan, without success, counselor left a voicemail. The patient's son is apparently coming from [place] next week to assist with discharge planning per Dr. Lim.), Lizy Edward, [facility] Psychiatric Therapist Input: To remain over weekend Group Spec/RT/OT/CORDERO Present: BRANDON Thornton Group Spec/RT/OT/CORDERO Input: Attends select group activities, isolates from peers. - Discharge Plan possible discharhe after the weekend. - Documentation Teaching Recipient: Patient
[2018-02-15] MEDS: LORazepam 1 MG Tablet PO PRN ×3 (09:06→20:31)
--- NOTE | 2018-02-15 16:24 | P.PNPSY ---
Subjective Chief Complaint: Psychosis Remarks: Reviewed electronic medical records and discussed case with staff. Follow-up was conducted in the patient's room with OTIS Al present. Patient states that she slept well and has a good appetite. However when asked her about her mood she quickly becomes rather irritable and oppositional stating "I do not have a mood". She goes on to attempt to watch into a story of how she was wrongfully admitted. She denies any side effects from medication. Her nurse reports that she is been doing better, compliant with her medications, and has had no behavioral disturbances. Mental Status Examination Appearance: Appropriate Consciousness: Alert Orientation: Person, Place (At least) Motor Activity: Normal gait, Other (No abnormal motor movements noted) Speech: Unremarkable Language: Adequate Fund of Knowledge: Adequate Attention and Concentration: Adequate Memory: Unremarkable (Fair) Mood: Appropriate Affect: Blunt Thought Process & Associations: Circumstantial (More focused today) Thought Content: Preoccupations Hallucination Type: None Delusion Type: None Suicidal Ideation: No Suicidal Plan: No Suicidal Intention: No Homicidal Ideation: No Homicidal Plan: No Homicidal Intention: No Insight: Poor Judgment: Poor Assessment and Plan - Assessment (1) Schizoaffective disorder Code(s): F25.9 - Schizoaffective disorder, unspecified Status: Acute - Plan Plan: Patient will be reevaluated by the attending psychiatrist. Continue with current treatment plan. Justification for Continued Inpatient Stay: Moving this patient to a less restrictive environment would likely result in decompensation. Request Healthcare Surrogate/Guardian Advocate?: Yes (1) Schizoaffective disorder Qualifiers: Schizoaffective disorder type: bipolar Qualified Code(s): F25.0 - Schizoaffective disorder, bipolar type
[2018-02-16] MEDS: LORazepam 1 MG Tablet PO PRN ×2 (08:30→14:33)
--- NOTE | 2018-02-16 13:28 | P.PNPSY ---
Subjective Chief Complaint: Psychosis Remarks: Reviewed electronic record and discussed with staff. Rounded with OTIS Diehl. Patient is in common area. She states that she is doing well. Sleeping and eating. Feels her medications are working. If you ask her more than a few questions she becomes irritable and oppositional. Denies SI/HI. Review of Systems All other systems reviewed negative except as stated in HPI Mental Status Examination Appearance: Appropriate Consciousness: Alert Orientation: Person, Place (At least) Motor Activity: Normal gait, Other (No abnormal motor movements noted) Speech: Unremarkable Language: Adequate Fund of Knowledge: Adequate Attention and Concentration: Adequate Memory: Unremarkable (Fair) Mood: Irritable Affect: Blunt Thought Process & Associations: Circumstantial (More focused today) Thought Content: Preoccupations Hallucination Type: None Delusion Type: None Suicidal Ideation: No Suicidal Plan: No Suicidal Intention: No Homicidal Ideation: No Homicidal Plan: No Homicidal Intention: No Insight: Poor Judgment: Poor Assessment and Plan - Assessment (1) Schizoaffective disorder Code(s): F25.9 - Schizoaffective disorder, unspecified Status: Acute (2) Marijuana use Code(s): F12.90 - Cannabis use, unspecified, uncomplicated Status: Acute - Plan Plan: Patient will be reevaluated by the attending psychiatrist. Continue with current treatment plan. Justification for Continued Inpatient Stay: Moving patient to a less restrictive environment may result in her decompensation. Request Healthcare Surrogate/Guardian Advocate?: Yes (1) Schizoaffective disorder Qualifiers: Schizoaffective disorder type: bipolar Qualified Code(s): F25.0 - Schizoaffective disorder, bipolar type
[2018-02-17] MEDS: LORazepam 1 MG Tablet PO PRN (08:27)
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
--- NOTE | 2018-02-17 14:41 | P.PNPSY ---
Subjective Chief Complaint: Psychosis Remarks: Patient seen and examined with nurse. Chart reviewed. Case discussed with nursing staff who reports patient's mood has improved over the course of treatment. Patient continues to make bizarre statements at times, but her psychosis is otherwise improved per nursing staff. Case discussed with counselor, who reports that he has tried to reach patient's children every work day without success. As a consequence, we have not been able to confirm patient 's discharge plan (which is to go stay with daughter). On my exam, patient denies SI/HI. She denies AVH, denies CAH. She denies issues with mood. No side effects from medications. No physical complaints. Patient says that after discharge, she plans to resume stimulant medications. I have cautioned against this course of action and have expressed concern that stimulant medications might exacerbate psychosis. Vital Signs Temp Pulse Resp BP Pulse Ox 02/17/18 05:45 97.6 F 94 H 16 103/70 97 02/16/18 17:50 94 H 18 107/63 97 Intake and Output 02/16/18 02/17/18 02/17/18 22:59 06:59 14:59 Other: Weight 55.4 kg Labs reviewed. No new labs. Review of Systems All other systems reviewed negative except as stated in HPI Mental Status Examination Appearance: Appropriate Consciousness: Alert Orientation: Person, Place (At least) Motor Activity: Normal gait, Other (No motor abnormalities noted) Speech: Unremarkable Language: Adequate Fund of Knowledge: Adequate Attention and Concentration: Adequate Memory: Unremarkable (Fair) Mood: Other (Calm) Affect: Blunt Thought Process & Associations: Other (Fairly linear) Thought Content: Other (Some bizarre ideation at times but otherwise generally appropriate) Hallucination Type: None Delusion Type: None Suicidal Ideation: No Suicidal Plan: No Suicidal Intention: No Homicidal Ideation: No Homicidal Plan: No Homicidal Intention: No Insight: Poor Judgment: Poor Assessment and Plan - Assessment (1) Schizoaffective disorder Code(s): F25.9 - Schizoaffective disorder, unspecified Status: Acute (2) Marijuana use Code(s): F12.90 - Cannabis use, unspecified, uncomplicated Status: Acute - Plan Plan: I suspect patient is approaching her chronic baseline, but safe discharge plan has not yet been ascertained. Continue oral Prolixin supplementing Prolixin decanoate. I will taper Ativan p.r.n. to 0.5mg/dose as patient has been using between 2-3 doses per day, and we do not want patient to have withdrawal after leaving the hospital. I have counseled patient about this concern. Continue to monitor on the inpatient unit. Continue other medications and care as ordered. Justification for Continued Inpatient Stay: Discharge planning. Risk for decompensation in less restrictive environment. Discharge Planning: Counselor working on discharge planning. Request Healthcare Surrogate/Guardian Advocate?: Yes (1) Schizoaffective disorder Qualifiers: Schizoaffective disorder type: bipolar Qualified Code(s): F25.0 - Schizoaffective disorder, bipolar type
[2018-02-17] MEDS: LORazepam 0.5 MG Tablet PO PRN ×2 (15:08→21:52)
[2018-02-18] MEDS: LORazepam 0.5 MG Tablet PO PRN (08:20)
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
--- NOTE | 2018-02-18 12:43 | P.TTN ---
- Patient Problems Problems: 1. Discharge planning 2. Medication compliance 3. Knowledge deficit 4. Lack of coping skills - Progress Toward Goals Provider Present: Dr. Jesús Lim (Patient meets criteria for discharge.) Provider Input: Start Prolixin. Possible discharge after weekend. Psychiatric Counselors Present: Sanket Valenzuela Jr., [facility] (Patient is being discharged to [facility]. Patient reports she has $800 in his savings account.), Lizy Edward, [facility] Psychiatric Therapist Input: To remain over weekend Group Spec/RT/OT/CORDERO Present: BRANDON Thornton, CONSUELO Keys ( Patient attends select groups and is redirectable.) Group Spec/RT/OT/CORDERO Input: Attends select group activities, isolates from peers. - Discharge Plan possible discharhe after the weekend. - Documentation Teaching Recipient: Patient
== END 2018-02-18 14:20 | disposition home or self-care (01) ==
LOC: NEPD 22:57 → NEDA 02-05 15:36 → H270 02-05 16:19
PROVIDERS: ADMIT Psychiatry & Neurology Psychiatry; ATTEND Psychiatry & Neurology Psychiatry